=== PATIENT | male | born 1965 | race Caucasian/White ===

== ENCOUNTER 2019-12-02 19:58 | Emergency (ER) | payer OTHER ==
[~2019-12-02] VITALS: Ht 177.8 cm; Wt 90.9 kg
--- NOTE | 2019-12-02 21:11 | PHYS DOC ---
Past Medical History Past Medical History: CHF, High Cholesterol, Hypertension, Other Additional Past Medical Histor: CHRONIC PAIN Past Surgical History: Other Additional Past Surgical Histo: right knee quad tendon repair Smoking Status: Never Smoker Alcohol Use: Occasionally Drug Use: None General Adult EDM: Chief Complaint: MECHANICAL FALL HPI: HPI: Patient is a 54 year old male who presents with was up on a ladder and got stung by a wasp. He states he is been started coming down the ladder fast when his left leg got hooked and when the ladder rungs and he was hanging upside down. He complains of knee pain and mid thigh thigh pain with laxity in the extremity. Patient is unable to extend the leg at the knee at all. Patient rates his pain a 10 out of 10 in the knee states is in sharp aching pain. He does have a orthopedic doctor that did his right knee quad tendon repair that he is seen in the morning. Patient has a history of hypertension, high cholesterol, CHF. Review of Systems: Review of Systems: Constitutional: Denies fever or chills. [] Eyes: Denies change in visual acuity. [] HENT: Denies nasal congestion or sore throat. [] Respiratory: Denies cough or shortness of breath. [] Cardiovascular: Denies chest pain or edema. [] GI: Denies abdominal pain, nausea, vomiting, bloody stools or diarrhea. [] : Denies dysuria. [] Musculoskeletal: Denies back pain. Left knee joint pain. Left mid thigh pain. [] Integument: Denies rash. [] Neurologic: Denies headache, focal weakness or sensory changes. [] Endocrine: Denies polyuria or polydipsia. [] Lymphatic: Denies swollen glands. [] Psychiatric: Denies depression or anxiety. [] Heart Score: Risk Factors: Risk Factors: DM, Current or recent (<one month) smoker, HTN, HLP, family history of CAD, obesity. Risk Scores: Score 0 - 3: 2.5% MACE over next 6 weeks - Discharge Home Score 4 - 6: 20.3% MACE over next 6 weeks - Admit for Clinical Observation Score 7 - 10: 72.7% MACE over next 6 weeks - Early Invasive Strategies Allergies: Allergies: Allergies Coded Allergies Type Severity Reaction Last Updated Verified No Known Drug Allergies 03/04/19 No Physical Exam: PE: Constitutional: Well developed, well nourished, no acute distress, non-toxic appearance. [] HENT: Normocephalic, atraumatic, bilateral external ears normal, oropharynx moist, no oral exudates, nose normal. [] Eyes: PERRLA, EOMI, conjunctiva normal, no discharge. [] Neck: Normal range of motion, no tenderness, supple, no stridor. [] Cardiovascular:Heart rate regular rhythm, no murmur [] Lungs & Thorax: Bilateral breath sounds clear to auscultation [] Abdomen: Bowel sounds normal, soft, no tenderness, no masses, no pulsatile masses. [] Skin: Warm, dry, no erythema, no rash. [] Back: No tenderness, no CVA tenderness. [] Extremities: No tenderness, no cyanosis, no clubbing, left knee ROM not intact, left knee 1+ edema. [] Neurologic: Alert and oriented X 3, normal motor function, normal sensory function, no focal deficits noted. [] Psychologic: Affect normal, judgement normal, mood normal. [] Current Patient Data: Vital Signs: Vital Signs Date Time Temp Pulse Resp B/P (MAP) Pulse Ox O2 Delivery O2 Flow Rate FiO2 12/02/19 20:05 97.6 77 22 142/76 (98) 97 Room Air 97.6 EKG: EKG: [] Radiology/Procedures: Radiology/Procedures: [] Impression: [facility] [address] [place], [place] [id number] IMAGING REPORT Signed PATIENT: DORINDA COCHRAN ACCOUNT: [id number] : 1965 LOCATION: ER AGE: 54 SEX: M EXAM STATUS: REG ER ORD. PHYSICIAN: ROBERT NUNEZ APRN REASON: knee pain PROCEDURE: KNEE LEFT 3V Exam: Left knee 3 views INDICATION: Knee pain TECHNIQUE: Frontal, lateral and oblique views of the left knee Comparisons: None FINDINGS: Bone mineralization is normal. No acute or healed fractures. Soft tissue swelling noted at the anterior aspect of the knee. Joint spaces are well-maintained. IMPRESSION: Soft tissue swelling at the anterior aspect of the knee without underlying osseous abnormality identified. Electronically signed by: Ruth Rene MD (12/02/2019 9:51 PM) [id number] DICTATED and SIGNED BY: RUTH RENE MD DATE: 12/02/192150 Course & Med Decision Making: Course & Med Decision Making Pertinent Labs and Imaging studies reviewed. (See chart for details) See HPI. Speaks in full clear sentences. Patient has a brace wrapped around his knee and has crutches he is using. He cannot apply any pressure stand on that extremity. 1+ knee edema. States he got himself down and unhooked himself. Denies any numbness or tingling, skin color change, skin temperature change. Skin is pink warm and dry. Alert and oriented x2. Denies back, neck, head pain, dizziness, LOC, hitting his head. Xray read by Dr Cummings as no acute findings. Patient to follow up with Orthopedic surgeon that he has a appointment with in the morning. [] Dragon Disclaimer: Dragon Disclaimer: This electronic medical record was generated, in whole or in part, using a voice recognition dictation system. Departure Departure Impression: Primary Impression: Knee pain, left Qualified Codes: M25.562 - Pain in left knee Disposition: HOME, SELF-CARE Condition: STABLE Referrals: PAYTON PEPE MD (PCP) JU COLLINS MD Patient Instructions: Knee Pain Additional Instructions: Follow up with orthopedic as scheduled. Please take Medications as prescribed. Do not drive or drink any alcohol while taking these medications because they will make you sleepy. Scripts Hydrocodone/Apap 5-325 (NORCO 5-325 TABLET) 1 Each Tablet 1 TAB PO PRN Q6HRS PRN for PAIN, #10 TAB 0 Refills Prov: ROBERT NUNEZ APRN 12/02/19 Justicifation of Admission Dx: Justifications for Admission: Justification of Admission Dx: N/A ROBERT NUNEZ APRN Dec 02, 2019 21:11
[2019-12-02] MEDS ORDERED: IBUPROFEN 400 MG TABLET. PO ONE (21:30)
[2019-12-02] MEDS ORDERED: HYDROcodone/APAP 5/325MG 1 TAB TABLET PO ONE (21:30)
[2019-12-02] MEDS ORDERED: HYDR-3164 PO (21:49)
--- NOTE | 2019-12-02 21:53 | RAD ---
Exam: Left knee 3 views INDICATION: Knee pain TECHNIQUE: Frontal, lateral and oblique views of the left knee Comparisons: None FINDINGS: Bone mineralization is normal. No acute or healed fractures. Soft tissue swelling noted at the anterior aspect of the knee. Joint spaces are well-maintained. IMPRESSION: Soft tissue swelling at the anterior aspect of the knee without underlying osseous abnormality identified. Electronically signed by: Ruth Allan MD (12/02/2019 9:51 PM) [id number]
[2019-12-02 22:05] VITALS: BP 134/70
== END 2019-12-02 22:05 | disposition home or self-care (01) ==
LOC: ER 19:58
DX: M25.562 Pain in left knee (principal); R60.0 Localized edema; I11.0 Hypertensive heart disease with heart failure; I50.9 Heart failure, unspecified; E78.00 Pure hypercholesterolemia, unspecified; G89.29 Other chronic pain; Z98.890 Other specified postprocedural states
CPT/HCPCS: 29505; 73562; 99283